=== PATIENT | female | born 1950 | race Caucasian/White ===

== ENCOUNTER 2016-11-22 07:37 | Inpatient (IN) | payer BC, OTHER ==
[~2016-11-22] VITALS: Ht 167.6 cm; Wt 101.9 kg
[~2016-11-22 07:37] MED LIST: ASPIRIN81 M1 PO; AUGMENTIN500 MG PO; Aspirin PO; CALCIUM 600+D1 EACH PO; CILOSTAZOL100 MG PO; CRESTOR20 MG PO; DIOVAN HCT 31 TABLE1 PO; DIVAN PO; GLIMEPIRIDE4 MG PO; GLUCOPHAGE1000 M1 PO; GLYNASE3 MG PO; HYOSCYAMINE0.375 MG; LEVOTHYROXINE125 MCG PO; Levbid,HyoMax SR PO; TESSALON PERLE100 MG PO; VENTOLIN HFA18 GM IH
[2016-11-22 07:56] LABS: POINT-OF-CARE METER ID UU13113702
[2016-11-22 08:03] LABS: EOSINOPHIL (%) 0.1 % (0-5); HEMATOCRIT 35.8 % (36.0-46.0); IMMATURE GRANULOCYTE (%) 0.8 % (0.0-0.7); IMMATURE GRANULOCYTE COUNT 0.1 K/uL; INSTRUMENT ABS NEUTROPHIL CT 10.9 K/uL; LYMPHOCYTE COUNT 0.7 K/uL (1.0-2.8); MCHC 33.2 G/DL (30.0-36.0); MCV 93.2 FL (83-99); MEAN PLAT.VOLUME 10.6 uM^3 (9.5-12.4); MONOCYTE (%) 6.2 % (3-12); MONOCYTE COUNT 0.8 K/uL (0-0.8); NEUTROPHIL (%) 87.2 % (45-76); NEUTROPHIL COUNT 10.9 K/uL (1.8-6.4); NRBC (%) 0.2 /100 WBC (0-0); PLATELET COUNT 68 K/uL (156-360); RBC DIS.WIDTH-SD 47.1 % (39-53); RED BLOOD COUNT 3.84 M/uL (3.80-5.20); WHITE BLOOD COUNT 12.5 K/uL (4.1-10.2)
[2016-11-22 08:43] LABS: ADD MIUA? YES; BILIRUBIN NEGATIVE; BLOOD LARGE; COLOR YELLOW ((YELLOW)); GLUCOSE (STRIP) NEGATIVE; KETONES NEGATIVE; LEUKOCYTES SMALL; NITRITE NEGATIVE; PROTEIN (STRIP) 30; SPECIFIC GRAVITY 1.013 (1.000-1.030); UROBILINOGEN 0.2 MG/DL (0.2-1.0)
[2016-11-22 08:47] LABS: BACTERIA RARE /HPF; EPITHELIAL CELLS NONE SEEN /HPF; MUCUS TRACE /LPF; UCUL ADDED? YES; WHITE BLOOD CELLS CLUMP FEW /HPF (0-5)
[2016-11-22 08:56] LABS: CHLORIDE 106 mEq/L (99-109); SODIUM 137 mEq/L (136-147)
[2016-11-22 08:57] LABS: GLUCOSE 117 mg/dL (70-99)
[2016-11-22 08:59] LABS: ANION GAP 15 MEQ/L (2-14)
[2016-11-22 09:02] LABS: UREA NITROGEN (BUN) 42 mg/dL (9-23)
[2016-11-22 09:04] LABS: TOTAL CK 1276 IU/L (1-294)
[2016-11-22 09:25] LABS: CREATINE KINASE 1276 IU/L (1-294)
[2016-11-22 09:35] LABS: GFR ESTIMATE (CALCULATED) 24 mL/min/
[2016-11-22] MEDS ORDERED: ALDACTONE50 MG PO (10:39)
[2016-11-22] MEDS ORDERED: LIPITOR40 MG PO (10:39)
[2016-11-22] MEDS ORDERED: GLUCOPHAGE500 MG PO (10:39)
[2016-11-22] MEDS ORDERED: SYNTHROID150 MCG PO (10:40)
[2016-11-22] MEDS ORDERED: POLY-IRON 1501 EACH PO (10:40)
[2016-11-22] MEDS ORDERED: COREG12.5 M1 PO (10:40)
[2016-11-22] MEDS ORDERED: LITE COAT ASPI325 M1 PO (10:41)
[2016-11-22] MEDS ORDERED: LEVBID0.375 MG PO (10:41)
[2016-11-22] MEDS ORDERED: OMEPRAZOLE40 M1 PO (10:42)
[2016-11-22 11:45] VITALS: BP 102/45
[2016-11-22 12:04] LABS: POINT-OF-CARE METER ID UU13113698
[2016-11-22 15:43] VITALS: BP 149/69
[2016-11-22 16:10] LABS: C DIFF TOXIN POSITIVE (NEGATIVE); PROBE CHECK PASS
[2016-11-22 17:24] LABS: POINT-OF-CARE METER ID UU14314088
[2016-11-22 18:59] VITALS: BP 103/55
[2016-11-22 19:24] LABS: INFLUENZA A VIRAL ANTIGEN NEGATIVE; INFLUENZA B VIRAL ANTIGEN NEGATIVE
[2016-11-22 20:25] LABS: POINT-OF-CARE METER ID UU14314088
[2016-11-22 22:23] VITALS: BP 133/68
[2016-11-23 04:09] VITALS: BP 124/54
[2016-11-23 05:45] LABS: HEMATOCRIT 31.3 % (36.0-46.0); MCH 30.6 PG (29.0-34.0); MCHC 32.6 G/DL (30.0-36.0); MEAN PLAT.VOLUME 11.4 uM^3 (9.5-12.4); PLATELET COUNT 58 K/uL (156-360); RBC DIS.WIDTH-SD 48.1 % (39-53); RED BLOOD COUNT 3.33 M/uL (3.80-5.20); WHITE BLOOD COUNT 10.9 K/uL (4.1-10.2)
[2016-11-23 06:13] LABS: ANION GAP 10 MEQ/L (2-14); CHLORIDE 110 MEQ/L (99-109); CREATINE KINASE 541 IU/L (1-294); GFR ESTIMATE (CALCULATED) 30 mL/min/; GLUCOSE 122 mg/dL (70-99); POTASSIUM 3.4 MEQ/L (3.7-5.4); SAMPLE HEMOLYSIS CHECK 0; SAMPLE ICTERIC CHECK 0; SAMPLE LIPEMIA CHECK 0; SODIUM 137 MEQ/L (136-147); UREA NITROGEN (BUN) 44 mg/dL (9-23)
[2016-11-23 07:59] LABS: POINT-OF-CARE METER ID UU13113698
[2016-11-23 11:23] LABS: POINT-OF-CARE METER ID UU13113698
[2016-11-23 11:54] VITALS: BP 136/70
[2016-11-23 15:38] VITALS: BP 116/58
[2016-11-23 16:27] LABS: POINT-OF-CARE METER ID UU13113698
[2016-11-23 19:31] VITALS: BP 168/70
[2016-11-23 21:11] LABS: POINT-OF-CARE METER ID UU13113698
[2016-11-23 22:15] VITALS: BP 124/58
[2016-11-24 02:51] VITALS: BP 152/70
[2016-11-24 05:11] LABS: EOSINOPHIL (%) 0.4 % (0-5); HEMATOCRIT 34.2 % (36.0-46.0); IMMATURE GRANULOCYTE (%) 0.3 % (0.0-0.7); INSTRUMENT ABS NEUTROPHIL CT 7.8 K/uL; LYMPHOCYTE COUNT 0.6 K/uL (1.0-2.8); MCH 30.5 PG (29.0-34.0); MCHC 32.5 G/DL (30.0-36.0); MEAN PLAT.VOLUME 11.3 uM^3 (9.5-12.4); MONOCYTE (%) 9.5 % (3-12); MONOCYTE COUNT 0.9 K/uL (0-0.8); NEUTROPHIL (%) 83.8 % (45-76); NEUTROPHIL COUNT 7.8 K/uL (1.8-6.4); PLATELET COUNT 60 K/uL (156-360); RBC DIS.WIDTH-CV 14.2 % (11.8-14.6); RBC DIS.WIDTH-SD 49.4 % (39-53); RED BLOOD COUNT 3.64 M/uL (3.80-5.20); WHITE BLOOD COUNT 9.3 K/uL (4.1-10.2)
[2016-11-24 05:27] LABS: CHLORIDE 112 mEq/L (99-109); POTASSIUM 3.5 mEq/L (3.7-5.4); SODIUM 137 mEq/L (136-147)
[2016-11-24 05:30] LABS: ANION GAP 8 MEQ/L (2-14)
[2016-11-24 05:32] LABS: GFR ESTIMATE (CALCULATED) 48 mL/min/
[2016-11-24 05:33] LABS: UREA NITROGEN (BUN) 37 mg/dL (9-23)
[2016-11-24 05:37] LABS: GLUCOSE 85 mg/dL (70-99)
[2016-11-24 07:36] VITALS: BP 128/55
[2016-11-24 07:46] LABS: POINT-OF-CARE METER ID UU13113698
[2016-11-24 11:06] LABS: POINT-OF-CARE METER ID UU13113781
[2016-11-24 11:16] VITALS: BP 141/65
[2016-11-24 15:34] VITALS: BP 124/58
[2016-11-24 16:16] LABS: POINT-OF-CARE METER ID UU13113698
[2016-11-24 19:46] VITALS: BP 109/57
[2016-11-24 21:36] LABS: POINT-OF-CARE METER ID UU14174216
[2016-11-24 23:45] VITALS: BP 125/56
[2016-11-25 03:37] VITALS: BP 129/56
[2016-11-25 05:19] LABS: HEMATOCRIT 28.6 % (36.0-46.0); MCH 32.3 PG (29.0-34.0); MCHC 34.3 G/DL (30.0-36.0); MCV 94.4 FL (83-99); NRBC (%) 0.3 /100 WBC (0-0); RBC DIS.WIDTH-CV 14.7 % (11.8-14.6); RBC DIS.WIDTH-SD 51.2 % (39-53); RED BLOOD COUNT 3.03 M/uL (3.80-5.20); WHITE BLOOD COUNT 7.3 K/uL (4.1-10.2)
[2016-11-25 06:11] LABS: PLATELET COUNT 87 K/uL (156-360)
[2016-11-25 06:24] LABS: ANION GAP 8 MEQ/L (2-14); CHLORIDE 113 MEQ/L (99-109); GFR ESTIMATE (CALCULATED) 53 mL/min/; GLUCOSE 82 mg/dL (70-99); SAMPLE HEMOLYSIS CHECK 1; SAMPLE ICTERIC CHECK 0; SAMPLE LIPEMIA CHECK 0; SODIUM 138 MEQ/L (136-147); UREA NITROGEN (BUN) 30 mg/dL (9-23)
[2016-11-25 07:58] LABS: POINT-OF-CARE METER ID UU14314088
[2016-11-25 08:20] VITALS: BP 121/53
[2016-11-25 11:30] LABS: POINT-OF-CARE METER ID UU14174216
[2016-11-25 11:50] VITALS: BP 115/54
[2016-11-25 15:45] VITALS: BP 130/63
[2016-11-25 15:58] LABS: POINT-OF-CARE METER ID UU13113698
[2016-11-25 19:16] VITALS: BP 161/72
[2016-11-25 21:48] LABS: POINT-OF-CARE METER ID UU13113781
[2016-11-25 23:38] VITALS: BP 134/61
[2016-11-26 04:30] VITALS: BP 115/65
[2016-11-26 05:54] LABS: ANION GAP 8 MEQ/L (2-14); CHLORIDE 114 MEQ/L (99-109); GFR ESTIMATE (CALCULATED) > 59 mL/min/; MAGNESIUM 1.7 mg/dl (1.3-2.7); POTASSIUM 3.6 MEQ/L (3.7-5.4); SAMPLE HEMOLYSIS CHECK 0; SAMPLE ICTERIC CHECK 0; SAMPLE LIPEMIA CHECK 0; SODIUM 138 MEQ/L (136-147); UREA NITROGEN (BUN) 23 mg/dL (9-23)
[2016-11-26 06:41] LABS: GLUCOSE 126 mg/dL (70-99)
[2016-11-26 06:58] LABS: HEMATOCRIT 28.4 % (36.0-46.0); MCHC 34.2 G/DL (30.0-36.0); MCV 93.7 FL (83-99); MEAN PLAT.VOLUME 11.2 uM^3 (9.5-12.4); PLAT.SUFFICIENCY VERY DECREASED; RBC DIS.WIDTH-CV 14.6 % (11.8-14.6); RBC DIS.WIDTH-SD 50.6 % (39-53); RED BLOOD COUNT 3.03 M/uL (3.80-5.20)
[2016-11-26 07:11] LABS: PLATELET COUNT 54 K/uL (156-360)
[2016-11-26 07:39] LABS: POINT-OF-CARE METER ID UU14314088
[2016-11-26 07:52] VITALS: BP 158/60
[2016-11-26 11:54] VITALS: BP 119/58
[2016-11-26 12:01] LABS: POINT-OF-CARE METER ID UU14314088
[2016-11-26 15:22] VITALS: BP 149/69
[2016-11-26 16:37] LABS: POINT-OF-CARE METER ID UU14314088
[2016-11-26 19:00] VITALS: BP 169/65
[2016-11-26 20:48] LABS: POINT-OF-CARE METER ID UU13113698
[2016-11-27] VITALS: BP 162/70
[2016-11-27 05:00] VITALS: BP 153/68
[2016-11-27 07:42] LABS: POINT-OF-CARE METER ID UU13113781
[2016-11-27 08:01] VITALS: BP 148/66
[2016-11-27 09:00] VITALS: BP 161/71
[2016-11-27 09:07] LABS: HEMATOCRIT 33.2 % (36.0-46.0); MCH 30.6 PG (29.0-34.0); MCHC 32.5 G/DL (30.0-36.0); MCV 94.1 FL (83-99); MEAN PLAT.VOLUME 11.1 uM^3 (9.5-12.4); RBC DIS.WIDTH-CV 14.7 % (11.8-14.6); RBC DIS.WIDTH-SD 51.3 % (39-53); RED BLOOD COUNT 3.53 M/uL (3.80-5.20); WHITE BLOOD COUNT 7.4 K/uL (4.1-10.2)
[2016-11-27 09:08] LABS: PLATELET COUNT 84 K/uL (156-360)
[2016-11-27 09:38] LABS: ANION GAP 8 MEQ/L (2-14); CHLORIDE 115 MEQ/L (99-109); GFR ESTIMATE (CALCULATED) > 59 mL/min/; MAGNESIUM 1.8 mg/dl (1.3-2.7); POTASSIUM 4.2 MEQ/L (3.7-5.4); SAMPLE HEMOLYSIS CHECK 0; SAMPLE ICTERIC CHECK 0; SAMPLE LIPEMIA CHECK 0; SODIUM 141 MEQ/L (136-147); UREA NITROGEN (BUN) 15 mg/dL (9-23)
[2016-11-27 09:46] LABS: GLUCOSE 87 mg/dL (70-99)
[2016-11-27] MEDS ORDERED: VANCOMYCIN125 MG/2.5 PO (10:01)
[2016-11-27] MEDS ORDERED: ROCEPHIN1000 MG IM (10:01)
[2016-11-27] MEDS ORDERED: CEFTRIAXONE2 G1 IM (10:20)
[2016-11-27 11:23] VITALS: BP 136/66
[2016-11-27 11:27] LABS: POINT-OF-CARE METER ID UU13113698
[2016-11-27] MEDS ORDERED: VANCOCIN HCL125 MG PO (11:57)
[2016-11-27 12:01] VITALS: BP 163/71
== END 2016-11-27 14:18 | disposition home or self-care (01) | DRG 872 ==
LOC: EME 07:37 → EDOF 09:59 → 4EAST 09:59 → ENRESERV 10:00 → 4EAST 11:35
PROVIDERS: Emergency Medicine; Hospitalist; Internal Medicine
DX: A41.51 Sepsis due to Escherichia coli [E. coli] (principal); M62.82 Rhabdomyolysis; N17.9 Acute kidney failure, unspecified; E11.65 Type 2 diabetes mellitus with hyperglycemia; N39.0 Urinary tract infection, site not specified; K76.0 Fatty (change of) liver, not elsewhere classified; A04.72 Enterocolitis due to Clostridium difficile, not specified as recurrent; E87.2 Acidosis; R65.20 Severe sepsis without septic shock; E03.9 Hypothyroidism, unspecified; I10 Essential (primary) hypertension; E78.2 Mixed hyperlipidemia; K74.60 Unspecified cirrhosis of liver; E87.6 Hypokalemia; B34.9 Viral infection, unspecified; D69.59 Other secondary thrombocytopenia; F17.200 Nicotine dependence, unspecified, uncomplicated; N12 Tubulo-interstitial nephritis, not specified as acute or chronic; K21.9 Gastro-esophageal reflux disease without esophagitis; E86.0 Dehydration; B96.20 Unspecified Escherichia coli [E. coli] as the cause of diseases classified elsewhere; Z68.32 Body mass index [BMI] 32.0-32.9, adult; Z99.81 Dependence on supplemental oxygen; Z79.899 Other long term (current) drug therapy; Z79.82 Long term (current) use of aspirin; Z79.4 Long term (current) use of insulin; Z82.49 Family history of ischemic heart disease and other diseases of the circulatory system
CPT/HCPCS: 71010; 80048; 81003; 82140; 82550; 82553; 82948; 83605; 83735; 84100; 84443; 85025; 85027; 87040; 87077; 87086; 87186; 87493; 87502; 87801; 93005; 94799; 97530 GO; 97530 GP; 99281; 99285; J0692; J0696; J1644; J1815; J2543; J7030; J7050; J7120

== ENCOUNTER 2017-06-09 18:40 | Emergency (ER) | payer OTHER, BC ==
[~2017-06-09] VITALS: Ht 167.6 cm; Wt 83.6 kg
[~2017-06-09 18:40] MED LIST changes: +ALDACTONE50 MG PO; +CEFTRIAXONE2 G1 IM; +COREG12.5 M1 PO; +GLUCOPHAGE500 MG PO; +LEVBID0.375 MG PO; +LIPITOR40 MG PO; +LITE COAT ASPI325 M1 PO; +OMEPRAZOLE40 M1 PO; +POLY-IRON 1501 EACH PO; +ROCEPHIN1000 MG IM; +SYNTHROID150 MCG PO; +VANCOCIN HCL125 MG PO; +VANCOMYCIN125 MG/2.5 PO
[2017-06-09] MEDS ORDERED: TRAMADOL HCL50 MG PO (22:14)
[2017-06-09 22:39] VITALS: BP 129/57
== END 2017-06-09 22:42 | disposition home or self-care (01) ==
LOC: EME 18:40 → RME 18:40
DX: S22.31XA Fracture of one rib, right side, initial encounter for closed fracture (principal); S00.33XA Contusion of nose, initial encounter; V49.40XA Driver injured in collision with unspecified motor vehicles in traffic accident, initial encounter; W22.10XA Striking against or struck by unspecified automobile airbag, initial encounter; Z79.82 Long term (current) use of aspirin; F17.200 Nicotine dependence, unspecified, uncomplicated
CPT/HCPCS: 71101; 93005; 99281; 99284

== ENCOUNTER 2017-06-20 20:15 | Emergency (ER) | payer OTHER, BC ==
[~2017-06-20] VITALS: Ht 167.6 cm; Wt 84.1 kg
[~2017-06-20 20:15] MED LIST changes: +TRAMADOL HCL50 MG PO
[2017-06-20 20:21] VITALS: BP 143/50
== END 2017-06-20 21:54 | disposition home or self-care (01) ==
LOC: EME 20:15
DX: I95.9 Hypotension, unspecified (principal); Z53.21 Procedure and treatment not carried out due to patient leaving prior to being seen by health care provider